=== PATIENT | female | born 1950 | race Hispanic/Latino ===

== ENCOUNTER 2019-12-19 12:09 | Emergency (ER) | payer MEDICARE ==
--- NOTE | 2019-12-19 13:26 | XRay Report ---
CHEST 2 VIEWS INDICATION: dyspnea. COMPARISON: 11/02/2009 FINDINGS: SUPPORT DEVICES: None. HEART: Within normal limits. LUNGS/PLEURA: COPD changes are present in the lungs with trace left-sided pleural effusion/pleural th ickening. Otherwise clear lungs. No pneumothorax. ADDITIONAL FINDINGS: None. IMPRESSION: 1. Pulmonary findings as above. Signer Name: Kye Tinajero MD Signed: 12/19/2019 1:22 PM Workstation Name: [id number]
[2019-12-19 14:09] LABS: Basophils # (Auto) 0.1 K/mm3 (0.0-0.1); Basophils % (Auto) 0.5 % (0.0-1.8); Eosinophils # (Auto) 0.1 K/mm3 (0.0-0.4); Eosinophils % (Auto) 0.6 % (0.0-4.3); Hematocrit 38.8 % (30.3-42.9); Lymphocytes # (Auto) 0.8 K/mm3 (1.2-5.4); Lymphocytes % (Auto) 6.3 % (13.4-35.0); Mean Corpuscular HGB Conc 34 % (30-34); Mean Corpuscular Volume 90 fl (79-97); Monocytes % (Auto) 7.2 % (0.0-7.3); Platelet Count 277 K/mm3 (140-440); Red Blood Count 4.33 M/mm3 (3.65-5.03); Red Cell Distribution Width 15.3 % (13.2-15.2)
[2019-12-19] MEDS ORDERED: ALBUTEROL 2.5 MG/3 ML NEBU IH ONE (14:18)
[2019-12-19 14:27] LABS: Calcium 9.4 mg/dL (8.4-10.2)
--- NOTE | 2019-12-19 15:02 | Emergency Department Report ---
ED Shortness of Breath HPI - General Chief Complaint: Dyspnea/Respdistress Stated Complaint: SOB Time Seen by Provider: 12/19/19 12:41 Source: patient Mode of arrival: Ambulatory Limitations: No Limitations - History of Present Illness Initial Comments: Patient is a 69-year-old female with a past medical history of schizophrenia and COPD who is presenting with some shortness of breath. Patient denies any cough congestion fevers or chills. Shortness of breath started today. States the shortness of breath is not accompanied with any chest discomfort. - Related Data Previous Rx's Medication Instructions Recorded Last Taken Type Albuterol Mdi (or & Nicu Only) 2 puff IH QID PRN #1 inhalation 12/19/19 Unknown Rx [ProAir HFA Inhaler] Allergies Allergy/AdvReac Type Severity Reaction Status Date / Time No Known Allergies Allergy Unverified 12/19/19 12:10 ED Review of Systems ROS: Stated complaint: SOB Other details as noted in HPI Comment: All other systems reviewed and negative ED Past Medical Hx - Past Medical History Hx Psychiatric Treatment: Yes (SCHIZOPHENRIC) - Surgical History Additional Surgical History: STOMACH - Social History Smoking Status: Never Smoker Substance Use Type: None - Medications Home Medications: Home Medications Medication Instructions Recorded Confirmed Last Taken Type Albuterol Mdi (or & Nicu Only) 2 puff IH QID PRN #1 inhalation 12/19/19 Unknown Rx [ProAir HFA Inhaler] ED Physical Exam - General Limitations: No Limitations General appearance: alert, in no apparent distress - Head Head exam: Present: atraumatic, normocephalic - Eye Eye exam: Present: normal appearance, PERRL, EOMI - ENT ENT exam: Present: mucous membranes moist - Neck Neck exam: Present: normal inspection - Respiratory Respiratory exam: Present: normal lung sounds bilaterally. Absent: respiratory distress, wheezes, rales, rhonchi - Cardiovascular Cardiovascular Exam: Present: regular rate, normal rhythm, normal heart sounds. Absent: systolic murmur, diastolic murmur, rubs, gallop - GI/Abdominal GI/Abdominal exam: Present: soft, normal bowel sounds. Absent: distended, tenderness, guarding, rebound, rigid - Extremities Exam Extremities exam: Present: normal inspection - Back Exam Back exam: Present: normal inspection - Neurological Exam Neurological exam: Present: alert, oriented X3 - Psychiatric Psychiatric exam: Present: normal affect, normal mood - Skin Skin exam: Present: warm, dry, intact, normal color. Absent: rash ED Course Vital Signs 12/19/19 12/19/19 12/19/19 12:14 12:38 13:30 Temperature 98.4 F Pulse Rate 96 H 117 H 82 Respiratory 26 H 25 H 31 H Rate Blood Pressure 104/62 Blood Pressure 119/78 [Right] O2 Sat by Pulse 94 92 96 Oximetry 12/19/19 13:36 Temperature Pulse Rate Respiratory 32 H Rate Blood Pressure Blood Pressure [Right] O2 Sat by Pulse Oximetry ED Medical Decision Making - Lab Data Result diagrams: 12/19/19 13:06 12/19/19 13:06 - Radiology Data Ordering Physician: NATTY PRINCE MD Date of Service: 12/19/19 Procedure(s): XR chest routine 2V Accession Number(s): [id number] cc: NATTY PRINCE MD Fluoro Time In Minutes: CHEST 2 VIEWS INDICATION: dyspnea. COMPARISON: 11/02/2009 FINDINGS: SUPPORT DEVICES: None. HEART: Within normal limits. LUNGS/PLEURA: COPD changes are present in the lungs with trace left-sided pleural effusion/pleural thickening. Otherwise clear lungs. No pneumothorax. ADDITIONAL FINDINGS: None. IMPRESSION: 1. Pulmonary findings as above. Signer Name: Kye Tinajero MD Signed: 12/19/2019 1:22 PM Workstation Name: [id number] - Medical Decision Making Patient started on albuterol and be discharged home. Patient in no acute distress distress Critical care attestation.: If time is entered above; I have spent that time in minutes in the direct care of this critically ill patient, excluding procedure time. ED Disposition Clinical Impression: COPD exacerbation Disposition: DC-01 TO HOME OR SELFCARE Is pt being admited?: No Does the pt Need Aspirin: No Condition: Stable Instructions: Chronic Obstructive Pulmonary Disease (ED) Referrals: GLADYS GARCIA MD [Referring] - 3-5 Days Time of Disposition: 15:04
[2019-12-19 16:04] VITALS: BP 105/70
== END 2019-12-19 16:17 | disposition home or self-care (01) ==
LOC: ED 12:09
DX: J44.1 Chronic obstructive pulmonary disease with (acute) exacerbation (principal); F20.9 Schizophrenia, unspecified; Z98.890 Other specified postprocedural states; Z79.899 Other long term (current) drug therapy
CPT/HCPCS: 36415; 71046; 80048; 85025; 93005

== ENCOUNTER 2019-12-21 12:27 | Emergency (ER) | payer MEDICARE ==
--- NOTE | 2019-12-21 17:54 | Emergency Department Report ---
ED General Adult HPI - General Chief complaint: Dyspnea/Respdistress Stated complaint: ELIZABETH Time Seen by Provider: 12/21/19 17:44 Source: patient Mode of arrival: Ambulatory Limitations: No Limitations - History of Present Illness Initial comments: Mrs. Tang is a 69 years old female with history of COPD and schizophrenia. Patient presented to the ER for evaluation of shortness of breath and wheezing stated that it has been going on for 1 year now. Patient was seen here 2 days ago and discharged on albuterol inhaler, not sure if the patient had her medication filled and not. Patient currently denying any fever, chills, chest pain, abdominal pain, nausea or vomiting. Patient also denied any suicidal or homicidal ideation. No visual or auditory hallucination. - Related Data Previous Rx's Medication Instructions Recorded Last Taken Type Albuterol Mdi (or & Nicu Only) 2 puff IH QID PRN #1 inhalation 12/19/19 Unknown Rx [ProAir HFA Inhaler] Allergies Allergy/AdvReac Type Severity Reaction Status Date / Time No Known Allergies Allergy Unverified 12/19/19 12:10 ED Review of Systems ROS: Stated complaint: ELIZABETH Other details as noted in HPI Comment: All other systems reviewed and negative Constitutional: denies: chills, fever Respiratory: shortness of breath, wheezing. denies: cough, SOB with exertion, SOB at rest Cardiovascular: denies: chest pain, palpitations Gastrointestinal: denies: abdominal pain, nausea, vomiting ED Past Medical Hx - Past Medical History Previous Medical History?: Yes Hx Psychiatric Treatment: Yes (SCHIZOPHENRIC) Hx COPD: Yes - Surgical History Past Surgical History?: Yes Additional Surgical History: STOMACH - Social History Smoking Status: Former Smoker Substance Use Type: Prescribed - Medications Home Medications: Home Medications Medication Instructions Recorded Confirmed Last Taken Type Albuterol Mdi (or & Nicu Only) 2 puff IH QID PRN #1 inhalation 12/19/19 Unknown Rx [ProAir HFA Inhaler] ED Physical Exam - General Limitations: No Limitations General appearance: alert, in no apparent distress - Head Head exam: Present: atraumatic, normocephalic, normal inspection - Eye Eye exam: Present: normal appearance - ENT ENT exam: Present: normal exam, normal orophraynx, mucous membranes moist - Neck Neck exam: Present: normal inspection, full ROM. Absent: tenderness, meningismus - Respiratory Respiratory exam: Present: wheezes (mild diffuse wheezes) - Cardiovascular Cardiovascular Exam: Present: regular rate, normal rhythm, normal heart sounds - GI/Abdominal GI/Abdominal exam: Present: soft, normal bowel sounds. Absent: distended, tenderness, guarding, rebound, rigid, organomegaly, mass, bruit, pulsatile mass, hernia - Extremities Exam Extremities exam: Present: normal inspection, full ROM, normal capillary refill. Absent: pedal edema, calf tenderness - Back Exam Back exam: Present: normal inspection, full ROM. Absent: CVA tenderness (R), CVA tenderness (L) - Psychiatric Psychiatric exam: Present: normal mood. Absent: agitated, homicidal ideation, suicidal ideation - Skin Skin exam: Present: warm, intact, normal color ED Course Vital Signs 12/21/19 12:37 Temperature 97.9 F Pulse Rate 96 H Respiratory 22 Rate Blood Pressure 119/74 O2 Sat by Pulse 94 Oximetry ED Medical Decision Making - Lab Data Result diagrams: 12/21/19 18:03 12/21/19 18:03 - Radiology Data Radiology results: report reviewed - Medical Decision Making Mrs. Tang is a 69 years old female with history of COPD and schizophrenia. Patient presented to the ER for evaluation of shortness of breath and wheezing stated that it has been going on for 1 year now. Patient was seen here 2 days ago and discharged on albuterol inhaler, not sure if the patient had her medication filled and not. Patient currently denying any fever, chills, chest pain, abdominal pain, nausea or vomiting. Patient also denied any suicidal or homicidal ideation. No visual or auditory hallucination. Patient labs reviewed and is unremarkable. Chest x-ray is negative for acute finding. Patient remained stable in the ER with stable vital sign. I will start patient on prednisone. Patient stated that she has an appointment with her primary doctor Dr. Fried tomorrow. Patient advised to return to the ER if she develop any new symptoms. Critical care attestation.: If time is entered above; I have spent that time in minutes in the direct care of this critically ill patient, excluding procedure time. ED Disposition Clinical Impression: COPD exacerbation Disposition: DC-01 TO HOME OR SELFCARE Is pt being admited?: No Condition: Stable Instructions: Chronic Obstructive Pulmonary Disease (ED) Referrals: NOREEN FRIED MD [Primary Care Provider] - 3-5 Days
[2019-12-21 18:19] LABS: Basophils # (Auto) 0.1 K/mm3 (0.0-0.1); Basophils % (Auto) 0.8 % (0.0-1.8); Eosinophils # (Auto) 0.1 K/mm3 (0.0-0.4); Eosinophils % (Auto) 0.5 % (0.0-4.3); Hematocrit 36.5 % (30.3-42.9); Hemoglobin 12.5 gm/dl (10.1-14.3); Lymphocytes # (Auto) 1.3 K/mm3 (1.2-5.4); Lymphocytes % (Auto) 10.3 % (13.4-35.0); Mean Corpuscular HGB Conc 34 % (30-34); Mean Corpuscular Volume 89 fl (79-97); Monocytes # (Auto) 0.6 K/mm3 (0.0-0.8); Monocytes % (Auto) 4.9 % (0.0-7.3); Platelet Count 271 K/mm3 (140-440); Red Blood Count 4.12 M/mm3 (3.65-5.03); Red Cell Distribution Width 14.9 % (13.2-15.2)
--- NOTE | 2019-12-21 18:39 | XRay Report ---
CHEST 1 VIEW INDICATION / CLINICAL INFORMATION: cough. COMPARISON: 12/19/2019 FINDINGS: SUPPORT DEVICES: None. HEART / MEDIASTINUM: Stable. LUNGS / PLEURA: No significant pulmonary or pleural abnormality. No pneumothorax. ADDITIONAL FINDINGS: No significant additional findings. IMPRESSION: 1. No acute findings or significant interval change when compared to 12/19/2019. Signer Name: Rory Perez MD Signed: 12/21/2019 6:34 PM Workstation Name: [id number]
[2019-12-21] MEDS ORDERED: POTASSIUM CHLORIDE ER 20 MEQ TAB PO ONE (18:47)
[2019-12-21 19:31] VITALS: BP 111/77
== END 2019-12-21 19:34 | disposition home or self-care (01) ==
LOC: ED 12:27
DX: J44.1 Chronic obstructive pulmonary disease with (acute) exacerbation (principal); F25.9 Schizoaffective disorder, unspecified; Z87.891 Personal history of nicotine dependence; Z79.899 Other long term (current) drug therapy; Z98.890 Other specified postprocedural states
CPT/HCPCS: 36415; 71045; 80048; 85025